=== PATIENT | male | born 1955 | race Caucasian/White ===

== ENCOUNTER 2018-08-14 20:22 | Emergency (ER) | payer BC, OTHER ==
[2018-08-14] MEDS ORDERED: Bacitracin Oint 1 GM U/D Packet TOP ONE (20:54)
[2018-08-14] MEDS ORDERED: Diphtheria,Pertussis(Acell),Tetanus Vaccine 0.5 ML SDV IM ONE (21:14)
--- NOTE | 2018-08-14 22:12 | EDM.PDOC ---
ED HPI GENERAL MEDICAL PROBLEM - General Chief Complaint: Laceration Stated Complaint: LEFT INDEX FINGER LACERATION Time Seen by Provider: 08/14/18 20:54 Source of Information: Reports: Patient History Limitations: Reports: No Limitations - History of Present Illness INITIAL COMMENTS - FREE TEXT/NARRATIVE: chief complaint: left finger cut This is a 62 year old male presents to ER for laceration repair of left INEDEX finger. 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 no other concerns. Onset: Today Duration: Hour(s): Location: Reports: Upper Extremity, Left (left index finger) Quality: Reports: Burning, Pressure, Sharp, Throbbing Severity: Moderate Improves with: Reports: Immobilization Worsens with: Reports: Movement Context: Reports: Other (cut finger with blade.) Associated Symptoms: Reports: No Other Symptoms Treatments HE[employer]IST: Reports: Dressing(s) Denies pain Pain Score (Numeric/FACES): 0 - Related Data Allergies Allergy/AdvReac Type Severity Reaction Status Date / Time No Known Allergies Allergy Verified 08/14/18 20:57 Home Meds: Home Meds NK [No Known Home Meds] 08/14/18 [History] Past Medical History HEENT History: Reports: Impaired Vision - Infectious Disease History Infectious Disease History: Reports: Chicken Pox, Measles Social & Family History - Tobacco Use Smoking Status *Q: Never Smoker Second Hand Smoke Exposure: No - Caffeine Use Caffeine Use: Reports: Coffee - Alcohol Use Days Per Week of Alcohol Use: 3 Number of Drinks Per Day: 1 Total Drinks Per Week: 3 - Recreational Drug Use Recreational Drug Use: No ED ROS GENERAL - Review of Systems Review Of Systems: See Below Constitutional: Reports: Other (left index finger laceration) Skin: Reports: Wound (left index finger laceration) Neurological: Reports: No Symptoms Psychiatric: Reports: No Symptoms Hematologic/Lymphatic: Reports: No Symptoms Immunologic: Reports: No Symptoms ED EXAM, SKIN/RASH Exam: See Below Exam Limited By: No Limitations General Appearance: Alert, WD/WN, Mild Distress Head: Atraumatic, Normocephalic Neck: Supple Respiratory/Chest: No Respiratory Distress Extremities: Other (left hand, index finger laceration) Neurological: No Motor/Sensory Deficits Psychiatric: Normal Affect Skin: Warm, Wound/Incision (left index finger) Location, Skin: Other (left index finger) Characteristics: Other (flap laceration) Associated features: Tenderness, Weeping ED SKIN PROCEDURES - Laceration/Wound Repair Left Lateral Digit - 2nd (Index) Lac/Wound length In cm: 3.5 Appearance: Subcutaneous, Irregular (flap laceration), Clean Distal NVT: Neuro & Vascular Intact, No Tendon Injury Anesthetic Type: Local Local Anesthesia - Lidocaine (Xylocaine): 1% Plain Local Anesthetic Volume: 5cc Skin Prep: Chlorhexidine (Hibiciens), Providone-Iodine (Betadine), Saline Saline Irrigation (cc's): 20 Exploration/Debridement/Repair: Wound Explored Closed with: Sutures Suture Size: 4-0 # of Sutures: 11 Suture Type: Prolene Sterile Dressing Applied: Provider Tetanus Status Addressed: Yes (given Tdap at today ER visit) Complications: No Course - Vital Signs Last Recorded V/S: Last Vital Signs Temp 36.7 C 08/14/18 21:04 Pulse 76 08/14/18 21:04 Resp 16 08/14/18 21:04 BP 141/76 H 08/14/18 21:04 Pulse Ox 98 08/14/18 21:04 - Orders/Labs/Meds Orders: Active Orders 24 hr Category Date Time Status Vaccines to be Administered [RC] PER UNIT ROUTINE Care 08/14/18 21:14 Active Meds: Medications Discontinued Medications Generic Name Dose Route Start Last Admin Trade Name Orenq PRN Reason Stop Dose Admin Bacitracin 1 dose 08/14/18 20:54 08/14/18 21:26 Bacitracin Oint 1 Gm TOP 08/14/18 20:55 1 dose ONETIME ONE Administration Diphtheria/Tetanus/Acell Pertussis 0.5 ml 08/14/18 21:14 08/14/18 21:26 Adacel IM 08/14/18 21:15 0.5 ml .ONCE ONE Administration Lidocaine HCl 5 ml 08/14/18 20:54 08/14/18 21:26 Xylocaine-Mpf 1% INJECT 08/14/18 20:55 5 ml ONETIME ONE Administration Departure - Departure Time of Disposition: 22:25 Disposition: Home, Self-Care 01 Condition: Good Clinical Impression: Need for DTaP vaccination, Laceration of finger - Discharge Information *PRESCRIPTION DRUG MONITORING PROGRAM REVIEWED*: Not Applicable *COPY OF PRESCRIPTION DRUG MONITORING REPORT IN PATIENT DEBORAH: Not Applicable Instructions: VIS, Tetanus, Diphtheria (Td); Tetanus, Diphtheria, Pertussis ( Tdap) - CDC, Laceration Care, Adult, [id number], Sutured Wound Care, Easy-to- Read Referrals: Mily Pineda MD [Primary Care Provider] - Forms: ED Department Discharge Care Plan Goals: laceration repair left indx finger -keep in bandage til tomorrow, then apply antibiotic ointment to laceration and bandage x 3 days then keep clean and dry. -Keflex 500mg one capsule two times a day til gone -Hydrocodone 5-325mg one every 4 to 6 hours as needed for pain -may use Tylenol or Motrin for less severe pain -Sutures out in 10 days -Monitor for signs of infection; redness, increase pain or discharge, swelling, return to ER for recheck. return to ER for any concerns or not improved. - Problem List & Annotations (1) Laceration of finger SNOMED Code(s): 462853631 Code(s): S61.219A - LACERATION W/O FB OF UNSP FINGER W/O DAMAGE TO NAIL, INIT Status: Acute Priority: High Qualifiers: Encounter type: initial encounter Finger: index finger Damage to nail status: with damage Foreign body presence: without foreign body Laterality: left Qualified Code(s): S61.311A - Laceration without foreign body of left index finger with damage to nail, initial encounter - Problem List Review Problem List Initiated/Reviewed/Updated: Yes - My Orders Last 24 Hours: My Active Orders 08/14/18 21:14 Vaccines to be Administered [RC] PER UNIT ROUTINE - Assessment/Plan Last 24 Hours: My Active Orders 08/14/18 21:14 Vaccines to be Administered [RC] PER UNIT ROUTINE Plan: laceration repair left index finger -keep in bandage til tomorrow, then apply antibiotic ointment to laceration and bandage x 3 days then keep clean and dry. -Tdap IM given in ER -Keflex 500mg one capsule two times a day til gone -Hydrocodone 5-325mg one every 4 to 6 hours as needed for pain -may use Tylenol or Motrin for less severe pain -Sutures out in 10 days -Monitor for signs of infection; redness, increase pain or discharge, swelling, return to ER for recheck. return to ER for any concerns or not improved.
== END 2018-08-14 22:25 | disposition home or self-care (01) ==
LOC: JP.ED 20:22
DX: S61.211A Laceration without foreign body of left index finger without damage to nail, initial encounter (principal); Z23 Encounter for immunization; W26.9XXA Contact with unspecified sharp object(s), initial encounter; Y99.0 Civilian activity done for income or pay
CPT/HCPCS: 12002; 90471; 90715; 99283; J2001

== ENCOUNTER 2019-03-17 13:13 | Emergency (ER) | payer BC ==
[2019-03-17] MEDS ORDERED: Ondansetron 4 MG/2 ML SDV IVPUSH ONE (14:57)
[2019-03-17] MEDS ORDERED: HYDROmorphone 1 MG/ML Syringe IVPUSH ONE (14:57)
--- NOTE | 2019-03-17 14:58 | EDM.PDOC ---
ED HPI GENERAL MEDICAL PROBLEM - General Chief Complaint: Abdominal Pain Stated Complaint: ABDOMINAL PAIN Time Seen by Provider: 03/17/19 14:58 Source of Information: Reports: Patient History Limitations: Reports: No Limitations - History of Present Illness INITIAL COMMENTS - FREE TEXT/NARRATIVE: pt arrived with pain in the rt flank. He states the pain came on suddenly when he was out fishing. Onset: Today, Sudden Duration: Hour(s): Location: Reports: Abdomen Associated Symptoms: Reports: Nausea/Vomiting Right Lower Abdomen Pain Score (Numeric/FACES): 10 - Related Data Allergies Allergy/AdvReac Type Severity Reaction Status Date / Time No Known Allergies Allergy Verified 08/14/18 20:57 Home Meds: Home Meds NK [No Known Home Meds] 08/14/18 [History] Past Medical History - Past Health History Medical/Surgical History: Denies Medical/Surgical History HEENT History: Reports: Impaired Vision - Infectious Disease History Infectious Disease History: Reports: Chicken Pox, Measles Social & Family History - Tobacco Use Smoking Status *Q: Never Smoker - Caffeine Use Caffeine Use: Reports: Coffee - Recreational Drug Use Recreational Drug Use: No ED ROS GENERAL - Review of Systems Review Of Systems: See Below Constitutional: Reports: No Symptoms HEENT: Reports: No Symptoms Respiratory: Reports: No Symptoms Cardiovascular: Reports: No Symptoms Endocrine: Reports: No Symptoms GI/Abdominal: Reports: Abdominal Pain, Other (pt has acute pain in the rt flank. He is very uncomfortable. ) : Reports: Flank Pain Musculoskeletal: Reports: No Symptoms Neurological: Reports: No Symptoms ED EXAM, GI/ABD - Physical Exam Exam: See Below Text/Narrative:: pt has marked pain in the rt flank. This came on suddenly Exam Limited By: No Limitations General Appearance: Alert, Severe Distress Ears: Normal TMs Nose: Normal Inspection Throat/Mouth: Normal Inspection Head: Atraumatic Neck: Normal Inspection Respiratory/Chest: No Respiratory Distress Cardiovascular: Regular Rate, Rhythm GI/Abdominal Exam: Soft, Other ( tender in the rt flank area. ) (Male) Exam: Deferred Rectal (Males) Exam: Deferred Back Exam: Normal Inspection Extremities: Normal Inspection Neurological: Alert, Oriented, Normal Cognition Psychiatric: Normal Affect Course - Vital Signs Last Recorded V/S: Last Vital Signs Temp 37.1 C 03/17/19 14:09 Pulse 60 03/17/19 16:43 Resp 18 03/17/19 14:09 BP 114/63 03/17/19 16:43 Pulse Ox 100 03/17/19 14:09 - Orders/Labs/Meds Labs: Laboratory Tests 03/17/19 03/17/19 03/17/19 Range/Units 14:41 14:41 14:59 WBC 15.0 H (4.5-11.0) K/uL RBC 5.05 (4.30-5.90) M/uL Hgb 15.7 H (12.0-15.0) g/dL Hct 47.2 (40.0-54.0) % MCV 94 (80-98) fL MCH 31 (27-31) pg MCHC 33 (32-36) % Plt Count 289 (150-400) K/uL Neut % (Auto) 81 H (36-66) % Lymph % (Auto) 12 L (24-44) % [place] % (Auto) 6 (2-6) % Eos % (Auto) 1 L (2-4) % Baso % (Auto) 0 (0-1) % Sodium 140 (140-148) mmol/L Potassium 4.1 (3.6-5.2) mmol/L Chloride 101 (100-108) mmol/L Carbon Dioxide 31 (21-32) mmol/L Anion Gap 7.6 (5.0-14.0) mmol/L BUN 19 H (7-18) mg/dL Creatinine 1.0 (0.8-1.3) mg/dL Est Cr Clr Drug Dosing 75.05 mL/min Estimated GFR (MDRD) > 60 (>60) Glucose 157 H (74-106) mg/dL Calcium 9.4 (8.5-10.1) mg/dL Total Bilirubin 0.8 (0.2-1.0) mg/dL AST 20 (15-37) U/L ALT 24 (12-78) U/L Alkaline Phosphatase 62 (46-116) U/L Total Protein 8.0 (6.4-8.2) g/dL Albumin 4.2 (3.4-5.0) g/dL Globulin 3.8 H (2.3-3.5) g/dL Albumin/Globulin Ratio 1.1 L (1.2-2.2) Urine Color Yellow (YELLOW) Urine Appearance Slightly cloudy A (CLEAR) Urine pH 7.0 (5.0-8.0) Ur Specific [place] 1.025 (1.008-1.030) Urine Protein Negative (NEGATIVE) mg/dL Urine Glucose (UA) 100 H (NEGATIVE) mg/dL Urine Ketones Negative (NEGATIVE) mg/dL Urine Occult Blood Moderate H (NEGATIVE) Urine Nitrite Negative (NEGATIVE) Urine Bilirubin Negative (NEGATIVE) Urine Urobilinogen 0.2 (0.2-1.0) EU/dL Ur Leukocyte Esterase Negative (NEGATIVE) Urine RBC 5-10 H (0-5) Urine WBC 0-5 (0-5) Ur Epithelial Cells Rare Amorphous Sediment Few Urine Bacteria Few Urine Mucus Rare Meds: Medications Discontinued Medications Generic Name Dose Route Start Last Admin Trade Name Freq PRN Reason Stop Dose Admin Hydromorphone HCl 1 mg 03/17/19 14:57 03/17/19 15:01 Dilaudid IVPUSH 03/17/19 14:58 1 mg ONETIME ONE Administration Ketorolac Tromethamine 30 mg 03/17/19 17:15 03/17/19 17:36 Toradol IVPUSH 03/17/19 17:16 30 mg ONETIME ONE Administration Ondansetron HCl 4 mg 03/17/19 14:57 03/17/19 15:02 Zofran IVPUSH 03/17/19 14:58 4 mg ONETIME ONE Administration Tamsulosin HCl 0.4 mg 03/17/19 17:15 03/17/19 17:36 Flomax PO 03/17/19 17:16 0.4 mg ONETIME ONE Administration - Re-Assessments/Exams Free Text/Narrative Re-Assessment/Exam: 03/17/19 17:21 cat scan of the abdoman shows a 3 mm stone in the ureter. The stone just sits outside of the bladder. Departure - Departure Time of Disposition: 18:25 Disposition: Home, Self-Care 01 Condition: Fair Clinical Impression: Right ureteral calculus - Discharge Information Instructions: Kidney Stones, [id number] Referrals: Domenico Mendes MD [Primary Care Provider] - Forms: ED Department Discharge Care Plan Goals: push fluids, flomax .4 daily. torodol 10mg po qid, -- as needed for pain. percocet 5/325 q6h prn for pain # 6.
--- NOTE | 2019-03-17 17:09 | CRLCT ---
INDICATION: Possible kidney stone. Pain. COMPARISON: None available TECHNIQUE: CT examination of the abdomen and pelvis was performed without contrast enhancement using 3 mm thick axial sections from the lung bases through the pubic symphysis. Oral contrast was not administered. Please note that all CT scans at this facility use dose modulation, iterative reconstruction, and/or weight-based dosing when appropriate to reduce radiation dose to as low as reasonably achievable. FINDINGS: There is mild right hydronephrosis and moderate right hydroureter extending to a 3 millimeter calculus located at the UVJ. There is no sign of any additional renal or ureteral calculi on either side. There is no sign of left-sided nephrolithiasis. There is no sign of left-sided hydronephrosis or hydroureter. There is a low-density region in the posterior interpolar right kidney measuring 2.1 centimeters in diameter consistent with a cyst. In the abdomen, the unenhanced liver, spleen, pancreas, and adrenals are normal in appearance. The gallbladder is normal in appearance. The abdominal aorta is normal in caliber with no sign of dilatation. There is no sign of retroperitoneal mass or adenopathy. The stomach, loops of small bowel, and colon in the abdomen are normal in appearance. In the pelvis, the appendix is normal in appearance with no sign of inflammatory process. The loops of small bowel and colon in the pelvis are normal in appearance. The prostate is normal in appearance. The urinary bladder is normal in appearance. There is no sign of pelvic or inguinal mass or adenopathy. The lung bases are clear. There is mild L4-5 disc degenerative disease. There is minimal L3-4 disc degenerative disease. There is minimal scoliosis of the lumbar spine convex towards the right. IMPRESSION: Mild right hydronephrosis and moderate right hydroureter produced by a 3 millimeter right UVJ calculus. CT of the abdomen shows no sign of any additional renal or ureteral calculi. No sign of obstruction of the left urinary system. CT of the pelvis shows no other abnormality. Please note that all CT scans at this facility use dose modulation, iterative reconstruction, and/or weight-based dosing when appropriate to reduce radiation dose to as low as reasonably achievable. Dictated by Miguel Mcmahon MD @ Mar 17 2019 5:01PM Signed by Dr. Miguel Mcmahon @ Mar 17 2019 5:08PM
[2019-03-17] MEDS ORDERED: Tamsulosin 0.4 MG Cap.ER PO ONE (17:15)
[2019-03-17] MEDS ORDERED: Ketorolac 30 MG/ML SDV IVPUSH ONE (17:15)
== END 2019-03-17 18:05 | disposition home or self-care (01) ==
LOC: JP.ED 13:13
DX: N13.2 Hydronephrosis with renal and ureteral calculous obstruction (principal)
CPT/HCPCS: 36415; 74176; 80053; 81001; 85025; 96374; 96375; 99284-25; A9270-GY; J1170; J1885; J2405

== ENCOUNTER 2022-09-18 05:46 | Day surgery (SDC) | payer BC, OTHER ==
[2022-09-18] MEDS ORDERED: Lactated Ringers 1,000 ML IV SCH (06:30)
[2022-09-18] MEDS ORDERED: Propofol 200 MG/20 ML SDV ONE (07:25)
[2022-09-18] MEDS ORDERED: Midazolam 1 MG/ML 2 ML SDV ONE (07:25)
[2022-09-18] MEDS ORDERED: fentaNYL 100 MCG/2 ML SDV ONE (07:25)
== END 2022-09-18 09:17 | disposition home or self-care (01) ==
LOC: JP.SDS 05:46
PROVIDERS: ATTEND Family Medicine
DX: Z12.11 Encounter for screening for malignant neoplasm of colon (principal); E78.5 Hyperlipidemia, unspecified
CPT/HCPCS: 45378; J2250; J2704; J3010; J7120